=== PATIENT | female | born 1970 | race Caucasian/White ===

== ENCOUNTER 2017-03-03 09:16 | Emergency (ER) | payer OTHER | END 2017-03-03 11:32 | disposition home or self-care (01) | LOC: FER 09:16 | DX: S76.311A Strain of muscle, fascia and tendon of the posterior muscle group at thigh level, right thigh, initial encounter (principal); K21.9 Gastro-esophageal reflux disease without esophagitis; F90.9 Attention-deficit hyperactivity disorder, unspecified type; Z79.899 Other long term (current) drug therapy; X50.1XXA Overexertion from prolonged static or awkward postures, initial encounter; Y92.009 Unspecified place in unspecified non-institutional (private) residence as the place of occurrence of the external cause | CPT/HCPCS: 73502; J1885 ==

== ENCOUNTER 2020-07-01 14:52 | Emergency (ER) | payer OTHER ==
[~2020-07-01 14:52] MED LIST: FIORICET1 EACH PO
[2020-07-01 15:44] LABS: BASOPHIL 0.6 % (0-2); EOSINOPHIL 0.4 % (0-5); HCT 42.3 % (37.0-47.0); HGB 13.5 g/dl (12.5-16.0); MCH 28.2 pg (25.0-31.0); MCHC 31.9 g/dL (32.0-36.0); MCV 88.5 fL (78.0-100.0); MONOCYTE 12.2 % (0-12); MPV 10.9 fL (6.0-9.5); NEUTROPHIL 54.4 % (41-80); NRBC 0; PLT 150 K/uL (150-400); RBC 4.78 M/uL (4.20-5.40); RDW 12.4 % (11.5-14.0); WBC 5.3 K/uL (4.0-10.5)
[2020-07-01 16:05] LABS: ALBUMIN 3.3 g/dL (3.4-5.0); BILIRUBIN - TOTAL 0.3 mg/dL (0.2-1.0); BUN/CREAT RATIO (CALC) 16.3 RATIO; CREATININE 0.86 mg/dL (0.51-0.95); GLOBULIN (CALCULATION) 3.7 g/dL; POTASSIUM 4.4 mmol/L (3.5-5.1)
[2020-07-01 16:40] LABS: LACTIC ACID 0.9 mmol/L (0.4-1.9)
[2020-07-01 17:38] LABS: BILIRUBIN NEGATIVE (NEGATIVE); BLOOD NEGATIVE Ery/uL (NEGATIVE); CLARITY CLEAR (CLEAR); COLOR YELLOW (YELLOW); GLUCOSE (U) NORMAL (NORMAL); LEUKOCYTES NEGATIVE Leu/uL (NEGATIVE); NITRITE NEGATIVE (NEGATIVE); PROTEIN NEGATIVE (NEGATIVE); SPECIFIC GRAVITY 1.025 (1.001-1.030); UROBILINOGEN 0.2 mg/dL (0.2-1.0)
== END 2020-07-01 18:36 | disposition home or self-care (01) ==
LOC: FER 14:52
PROVIDERS: Emergency Medicine; Nurse Practitioner Family
DX: U07.1 COVID-19 (principal); I10 Essential (primary) hypertension; M54.6 Pain in thoracic spine
CPT/HCPCS: 36415; 36600; 71275; 80053; 81003; 82803; 83540; 83605; 84145; 84484; 85025; 85379; 93005; J1100; J1885; Q9967